=== PATIENT | male | born 1995 | race Caucasian/White ===

== ENCOUNTER 2021-10-12 10:20 | Emergency (ER) | payer OTHER ==
[~2021-10-12] VITALS: Ht 177.8 cm; Wt 79.4 kg
[2021-10-12 10:30] VITALS: BP_SYST 133
[2021-10-12] MEDS ORDERED: traMADol HCL HCL 50 MG TABLET (ULTRAM) PO ONE (11:00)
[2021-10-12] MEDS ORDERED: TRAM50TA PO (11:25)
[2021-10-12] MEDS ORDERED: NAPR-688 PO (11:25)
[2021-10-12 12:03] VITALS: BP_SYST 117
== END 2021-10-12 12:07 | disposition home or self-care (01) ==
LOC: SED 10:20
DX: S80.02XA Contusion of left knee, initial encounter (principal); M79.661 Pain in right lower leg; Z79.899 Other long term (current) drug therapy; X58.XXXA Exposure to other specified factors, initial encounter; Y93.89 Activity, other specified; Y92.89 Other specified places as the place of occurrence of the external cause; Y99.0 Civilian activity done for income or pay
CPT/HCPCS: 73564; 99283